=== PATIENT | female | born 1965 | race Caucasian/White ===

== ENCOUNTER 2017-03-10 16:40 | Emergency (ER) | payer OTHER ==
[~2017-03-10] VITALS: Ht 147.3 cm; Wt 90.9 kg
[2017-03-10] MEDS ORDERED: BUSP15TA3 PO (17:03)
[2017-03-10] MEDS ORDERED: TRAZ-147 PO (17:03)
[2017-03-10] MEDS ORDERED: DIPH1TAB24 PO (17:03)
[2017-03-10] MEDS ORDERED: SERT100T12 PO (17:03)
[2017-03-10] MEDS ORDERED: LEVE500T53 PO (17:03)
[2017-03-10] MEDS ORDERED: LORazepam 1 MG TABLET PO ONE (17:30)
[2017-03-10 18:50] VITALS: BP 125/57
== END 2017-03-10 19:34 | disposition home or self-care (01) ==
LOC: EMS 16:43
DX: F41.0 Panic disorder [episodic paroxysmal anxiety] (principal); F32.9 Major depressive disorder, single episode, unspecified; I10 Essential (primary) hypertension; J45.909 Unspecified asthma, uncomplicated
CPT/HCPCS: 99284

== ENCOUNTER 2017-05-16 18:46 | Emergency (ER) | payer OTHER ==
[~2017-05-16] VITALS: Ht 177.8 cm; Wt 85.9 kg
[~2017-05-16 18:46] MED LIST: BUSP15TA3 PO; DIPH1TAB24 PO; LEVE500T53 PO; SERT100T12 PO; TRAZ-147 PO
[2017-05-16] MEDS ORDERED: IBUPROFEN 800 MG TABLET PO ONE (19:00)
[2017-05-16] MEDS ORDERED: ACETAMINOPHEN/CODEINE 300-30 MG TABLET PO ONE (20:00)
[2017-05-16 20:24] VITALS: BP 135/80
== END 2017-05-16 20:59 | disposition home or self-care (01) ==
LOC: EMS 18:47
DX: S93.401A Sprain of unspecified ligament of right ankle, initial encounter (principal); M79.671 Pain in right foot; J45.909 Unspecified asthma, uncomplicated; I10 Essential (primary) hypertension; W22.8XXA Striking against or struck by other objects, initial encounter; Y93.89 Activity, other specified; Y92.89 Other specified places as the place of occurrence of the external cause; Y99.8 Other external cause status
CPT/HCPCS: 29515; 99284